=== PATIENT | female | born 1980 | race Caucasian/White ===

== ENCOUNTER 2024-06-18 10:55 | Emergency (ER) | payer MEDICAID ==
[~2024-06-18] VITALS: Ht 157.5 cm; Wt 70.3 kg
[2024-06-18 17:30] VITALS: BP 134/78
== END 2024-06-18 17:30 | disposition home or self-care (01) ==
LOC: ED 10:55
DX: S00.83XA Contusion of other part of head, initial encounter (principal); H11.32 Conjunctival hemorrhage, left eye; Y04.0XXA Assault by unarmed brawl or fight, initial encounter
CPT/HCPCS: 70450; 70486; 72125; 99284-25